=== PATIENT | female | born 1960 | race Hispanic/Latino ===

== ENCOUNTER → 2020-03-16 | Outpatient (CLI) | payer OTHER | END | disposition home or self-care (01) | LOC: RAH 10:51 | PROVIDERS: ATTEND Family Medicine | DX: N63.21 Unspecified lump in the left breast, upper outer quadrant (principal) | CPT/HCPCS: 76641; 77066 ==

== ENCOUNTER → 2020-04-03 | Outpatient (CLI) | payer OTHER ==
[2020-04-03 09:12] LABS: INR 0.96 (0.85-1.15); PARTIAL THROMBOPLASTIN TIME 28.7 SEC (26.3-35.5); PROTHROMBIN TIME 10.4 SEC (9.6-11.6)
--- NOTE | 2020-04-03 09:45 | NUR ---
US GUIDED BIOPSY OF LEFT BREAST MASS 1 OCLOCK AND LEFT AXILLA PROCEDURE PERFORMED BY DR. ANTOINE. PUNCTURE SITE LEFT LATERAL BREAST AND PATIENT TOLERATED PROCEDURE WELL. SPECIMEN X 2 COLLECTED AND SENT TO LAB. TISSUE MARKER DEPLOYED TO BIOPSY SITE. PUNCTURE SITE TO LEFT AXILLA AND PATIENT TOLERATED PROCEDURE WELL. SPECIMEN X 3 COLLECTED AND SENT TO LAB. END OF PROCEDURE AT 1020. BIOPSY NEEDLE REMOVED AND DRESSING APPLIED. NO BLEEDING NOTED. DISCHARGE INSTRUCTIONS GIVEN TO PATIENT AND VERBALIZED UNDERSTANDING. DISCHARGED VIA AMBULATORY STABLE, AAO X 3 WITH NO C/O PAIN.
== END | disposition home or self-care (01) ==
LOC: RAH 07:31
PROVIDERS: ATTEND Family Medicine
DX: N63.21 Unspecified lump in the left breast, upper outer quadrant (principal); R59.0 Localized enlarged lymph nodes; Z79.01 Long term (current) use of anticoagulants; Z90.49 Acquired absence of other specified parts of digestive tract; Z98.51 Tubal ligation status
CPT/HCPCS: 19083; 36415; 38505; 76942; 77065; 85610; 85730; A4215 ×4; 19084